=== PATIENT | male | born 1960 | race Caucasian/White ===

== ENCOUNTER → 2023-09-23 19:52 | Outpatient (REF) | payer OTHER, SELFPAY | LOC: MRI 3T 19:52 | PROVIDERS: ATTENDING PHYSICIAN Specialist | DX: R97.20 Elevated prostate specific antigen [PSA] (principal) | CPT/HCPCS: 72197; A9575 ==

== ENCOUNTER 2023-10-27 16:30 | Outpatient (RCR) | payer OTHER, SELFPAY | END 2023-10-27 23:59 | disposition home or self-care (01) | LOC: RPT 16:30 | PROVIDERS: ATTENDING PHYSICIAN Specialist; FAMILY PHYSICIAN Internal Medicine | DX: C61 Malignant neoplasm of prostate (principal); M62.89 Other specified disorders of muscle; R10.2 Pelvic and perineal pain; Z73.6 Limitation of activities due to disability | CPT/HCPCS: 97162; 97530 ==

== ENCOUNTER 2023-11-03 06:10 | Inpatient (IN) | payer OTHER, SELFPAY ==
[2023-10-28 08:12] VITALS: BMI 26.3
[2023-10-28 09:00] LABS: Hematocrit 38.7 % (39.0-52.0); Hemoglobin 13.9 g/dL (13.0-18.0); Mean Corp Hgb Conc. 35.9 g/dL (33.0-37.0); Mean Corpuscular Volume 80.6 fL (80.0-94.0); Mean Platelet Volume 8.6 fL (7.4-10.4); Platelet Count 178 10^3/uL (130-400); Red Cell Dist. Width 12.5 % (11.5-14.5); White Blood Cell Count 6.3 10^3/uL (4.8-10.8)
[2023-10-28 09:12] LABS: INR 1.02; PT 13.2 Sec (11.4-14.6)
[2023-10-28 09:13] LABS: APTT 29.9 Sec (23.4-35.0)
[2023-10-28 09:29] LABS: Urine Albumin Negative (Neg - Trace); Urine Bilirubin Negative (Negative); Urine Character Clear (Clear); Urine Glucose Negative (Negative); Urine Ketone Negative (Negative); Urine Leukocyte Negative (Negative); Urine Nitrite Negative (Negative); Urine Occult Blood Negative (Negative); Urine Specific Gravity 1.015 (<1.030); Urine Urobilinogen Negative (Neg - 1+)
[2023-10-28 09:31] LABS: Urine Color Yellow
[2023-10-28 10:31] LABS: Blood Urea Nitrogen 13 mg/dl (9-20); Calcium 9.5 mg/dl (8.4-10.2); Carbon Dioxide 29 mmol/L (22-30); Chloride 106 mmol/L (98-107); Estimated Creatinine Clearance 70 ml/min; Glucose 100 mg/dl (70-99); Potassium 4.6 mmol/L (3.5-5.1); Sodium 139 mmol/L (135-145); eGFR > 60.00
[2023-11-03] VITALS (20 sets, daily range): BP systolic 106–166; BP diastolic 61–95; BMI 26.3; BMI 26.2
[2023-11-03] MEDS: NORMOSOL-R 1000 IV ×3 (07:59→23:54)
[2023-11-03] MEDS: NEBCIN 480 MG/100 ML ENEMA 1 BOTTLE RECTAL (08:00)
--- NOTE | 2023-11-03 11:08 | W.IMMPOSTOP ---
Surgical Immed Post Op Note
-
Primary Surgeon: Alejandro
Assisting Surgeon: Pipo
Pre-op Diagnosis: Prostate cancer
Post-op Diagnosis: Same
Procedure Performed: Radical perineal prostatectomy
Anesthesia Type: GET
Specimen / Cultures: Prostate w/ seminal vesicles, bladder neck and urethral margins
Estimated Blood Loss: 100 ml
Complications: None
[2023-11-03] MEDS: DILAUDID 0.5 MG IV ×3 (11:33→13:25)
[2023-11-03 11:54] LABS: Hematocrit 36.9 % (39.0-52.0); Hemoglobin 12.9 g/dL (13.0-18.0)
[2023-11-03 12:04] LABS: Blood Urea Nitrogen 14 mg/dl (9-20); Calcium 8.3 mg/dl (8.4-10.2); Carbon Dioxide 25 mmol/L (22-30); Chloride 107 mmol/L (98-107); Estimated Creatinine Clearance 77 ml/min; Glucose 109 mg/dl (70-99); Potassium 4.3 mmol/L (3.5-5.1); Sodium 135 mmol/L (135-145); eGFR > 60.00
[2023-11-03] MEDS: TORADOL 15 MG IV ×3 (12:08→23:53)
[2023-11-03] MEDS: COLACE PO (16:04)
[2023-11-03] MEDS: PERCOCET 5/325 1 TABLET PO ×2 (16:29→21:10)
[2023-11-03] MEDS: COLACE 100 MG PO (16:29)
--- NOTE | 2023-11-03 16:42 | PTCARENOTE ---
Patient received from PACU in bed; IVF infusing; Surgical site assessed with WEB WORKER, grante with ABD and joni drain present; Escudero catheter in place; Patient oriented to room and unit; Spouse at bedside; Bed in lowest position, wheels locked;
Call king within reach
[2023-11-03] MEDS: POLYSPORIN OINTMENT 1 APPLIC TOPICAL (20:56)
[2023-11-04 04:45] VITALS: BP 132/76
[2023-11-04] MEDS: TORADOL 15 MG IV ×2 (06:18→18:04)
[2023-11-04] MEDS: SYNTHROID 125 MCG PO (06:19)
[2023-11-04 06:30] LABS: Hematocrit 31.9 % (39.0-52.0); Hemoglobin 11.4 g/dL (13.0-18.0); Mean Corp Hgb Conc. 35.7 g/dL (33.0-37.0); Mean Corpuscular Hgb 29.2 pg (27.0-31.0); Mean Corpuscular Volume 81.6 fL (80.0-94.0); Mean Platelet Volume 8.9 fL (7.4-10.4); Platelet Count 160 10^3/uL (130-400); Red Blood Cell Count 3.91 10^6/uL (4.70-6.10); Red Cell Dist. Width 12.5 % (11.5-14.5); White Blood Cell Count 12.7 10^3/uL (4.8-10.8)
[2023-11-04 07:06] LABS: Blood Urea Nitrogen 15 mg/dl (9-20); Calcium 8.5 mg/dl (8.4-10.2); Carbon Dioxide 25 mmol/L (22-30); Chloride 105 mmol/L (98-107); Estimated Creatinine Clearance 79 ml/min; Glucose 96 mg/dl (70-99); Sodium 133 mmol/L (135-145); eGFR > 60.00
[2023-11-04 07:12] LABS: Potassium 4.3 mmol/L (3.5-5.1)
[2023-11-04 07:35] VITALS: BP 128/78
[2023-11-04] MEDS: NORMOSOL-R 1000 IV (08:51)
[2023-11-04] MEDS: POLYSPORIN OINTMENT 1 APPLIC TOPICAL ×2 (08:51→20:38)
--- NOTE | 2023-11-04 09:02 | W.PN.UPDATE ---
Update Note
Progress Note Update
Stable 1 day s/p radical perineal prostatectomy
Escudero draining clear urine
Labs OK
Tole diet
Flatus and BM
Incision clean
---
Anticipate discharge home tomorrow
[2023-11-04] MEDS: COLACE 100 MG PO ×2 (09:03→18:05)
[2023-11-04] MEDS: CLARITIN 10 MG PO (09:03)
[2023-11-04] MEDS: ZESTRIL 20 MG PO (09:03)
[2023-11-04] MEDS: CRESTOR 10 MG PO (09:04)
[2023-11-04] MEDS: TYLENOL 650 MG PO ×2 (09:08→14:42)
[2023-11-04 11:09] VITALS: BP 145/68
--- NOTE | 2023-11-04 12:12 | CM ---
Reviewed the chart notes and spoke with the patient at the bedside. The patient resides with his spouse in a two story home with two steps to enter. The patient reports no DME/VN/SNF. The patient confirmed his pharmacy of choice is the [facility]
[address] [place]. The patient has been ordered VN. Discussed area VN agencies. Patient selected VN. Referral sent in [facility]. continues to be available to patient/family and is monitoring medical plan for needs at discharge.
Plan: Discharge to home with VN services.
[2023-11-04] MEDS: COLACE PO (12:40)
[2023-11-04] MEDS: TORADOL IV (12:40)
[2023-11-04 15:46] VITALS: BP 156/89
[2023-11-04 23:37] VITALS: BP 129/76
[2023-11-05] MEDS: SYNTHROID 125 MCG PO (06:02)
[2023-11-05] MEDS: TYLENOL 650 MG PO ×2 (06:05→13:10)
[2023-11-05 07:48] VITALS: BP 129/74
[2023-11-05] MEDS: POLYSPORIN OINTMENT 1 APPLIC TOPICAL (07:53)
[2023-11-05] MEDS: CRESTOR 10 MG PO (07:53)
[2023-11-05] MEDS: COLACE 100 MG PO (07:54)
[2023-11-05] MEDS: CLARITIN 10 MG PO (07:54)
[2023-11-05] MEDS: ZESTRIL 20 MG PO (07:54)
--- NOTE | 2023-11-05 11:08 | W.DCSUMMARY ---
Discharge Summary
Discharge Data
Date of Admission: 11/03/23
Date of Discharge: 11/05/23
-
Pending Results: Yes (pathologyu report)
Discharge Plan
-
Patient Disposition: Home with Home Care
Discharge Diagnosis/Procedures: prostate cancer
Condition: Good
Diet: No restrictions
Activity: No strenuous activity
Additional Activity: for 1 week
Driving Restrictions: No driving for 1 week
Bathing Restrictions: Shower off after each BM for the next 5 days
Other Services: VN
Wound Care: VN to remove Escudero around 10 AM Tuesday11/14/23
Referrals:
Ignacio Masterson MD [Family Provider] -
Tre Allen MD [Active] - (Call now to schedule visit to see Dr. Allen' nurse 11/14/23 around 3pm to check voiding)
Prescriptions:
New
doxycycline hyclate 100 mg capsule
100 mg PO BID 7 Days Qty: 14 0RF
Continued
multivitamin Tablet
1 tab PO DAILY
celecoxib [Celebrex] 200 mg Capsule
200 mg PO DAILY
omega-3 fatty acids 1,000 mg Capsule
4,000 mg PO DAILY
lisinopril 20 mg Tablet
20 mg PO DAILY
levothyroxine [Synthroid] 125 mcg Tablet
125 mcg PO DAILY
loratadine [Claritin] 10 mg Tablet
10 mg PO DAILY
rosuvastatin 20 mg Tablet
20 mg PO DAILY
Discharge Orders:
Discharge Patient (As Directed); Ordered 11/05/23
Ordered By: Surya Steen
Discharge Date and Time
Print Language: YORUBA
--- NOTE | 2023-11-05 12:08 | CM ---
CM following re: discharge planning.
Reviewed pt's chart, met with pt.
Discharge order noted. Pt is aware and he stated his spouse is coming to transport home. Pt is aware he will have [facility].
Please fax discharge instructions to [facility] at [phone]
D/C plan: home with [facility] and family support. Spouse to transport.
No other discharge needs identified.
[2023-11-05] MEDS: COLACE PO (13:10)
[2023-11-05 13:26] VITALS: BP 162/95
--- NOTE | 2023-11-08 11:13 | W.DS.TRANS ---
DC Summary - [employer]
-
Discharge Instructions:
Sleep Apnea Risk Intermediate
Discharge Diagnosis/Procedures prostate cancer
Diet No restrictions
Activity No strenuous activity
Additional Activity for 1 week
Driving Restrictions No driving for 1 week
Bathing Restrictions Shower off after each BM for the next 5 days
Other Services VN
Wound Care VN to remove Escudero around 10 AM Tuesday11/14/23
Instructions:
Stand-Alone Forms:
Changes to Home Medications: No
Discharge Medications:
DC Medications w/original date entered in [employer]
celecoxib 200 mg capsule (Celebrex) 200 mg PO DAILY Pain 10/28/23
levothyroxine 125 mcg tablet (Synthroid) 125 mcg PO DAILY Thyroid 10/28/23
lisinopril 20 mg tablet 20 mg PO DAILY Blood Pressure 10/28/23
loratadine 10 mg tablet (Claritin) 10 mg PO DAILY Allergies 10/28/23
multivitamin 1 tab PO DAILY Supplement 10/28/23
omega-3 fatty acids 1,000 mg capsule 4,000 mg PO DAILY High Cholesterol 10/28/23
rosuvastatin 20 mg tablet 20 mg PO DAILY High Cholesterol 10/28/23
doxycycline hyclate 100 mg capsule 100 mg PO BID 7 days #14 caps 11/04/23
Home Medication Changes
Pending Results: No
== END 2023-11-05 13:00 | disposition home health service (06) | DRG 708 ==
LOC: 2 SOUTH 06:10
PROVIDERS: ADMITTING PHYSICIAN Specialist; FAMILY PHYSICIAN Internal Medicine
PROC: 0TQC0ZZ Repair Bladder Neck, Open Approach (ICD-10-PCS; 2023-11-03)
PROC: 0VTQ0ZZ Resection of Bilateral Vas Deferens, Open Approach (ICD-10-PCS; 2023-11-03)
PROC: 0VT30ZZ Resection of Bilateral Seminal Vesicles, Open Approach (ICD-10-PCS; 2023-11-03)
PROC: 0VT00ZZ Resection of Prostate, Open Approach (ICD-10-PCS; 2023-11-03)
DX: C61 Malignant neoplasm of prostate (principal); E06.3 Autoimmune thyroiditis; I10 Essential (primary) hypertension; K21.9 Gastro-esophageal reflux disease without esophagitis; N52.01 Erectile dysfunction due to arterial insufficiency; R97.20 Elevated prostate specific antigen [PSA]; Z79.890 Hormone replacement therapy; Z79.1 Long term (current) use of non-steroidal anti-inflammatories (NSAID)
CPT/HCPCS: 88305; 88309; 36415; 80048; 81003; 85014; 85018; 85027; 85610; 85730; 86850; 86900; 86901; 88341; 88342; 88344; 93005; A4648

== ENCOUNTER 2023-12-30 08:54 | Outpatient (RCR) | payer OTHER, SELFPAY | END 2023-12-30 23:59 | disposition home or self-care (01) | LOC: RPT 08:54 | PROVIDERS: ATTENDING PHYSICIAN Specialist; FAMILY PHYSICIAN Internal Medicine | DX: M62.89 Other specified disorders of muscle (principal); R10.2 Pelvic and perineal pain; N39.3 Stress incontinence (female) (male); Z73.6 Limitation of activities due to disability | CPT/HCPCS: 97140; 97164; 97530 ==

== ENCOUNTER 2024-01-30 09:16 | Outpatient (RCR) | payer OTHER, SELFPAY | END 2024-01-30 23:59 | disposition home or self-care (01) | LOC: RPT 09:16 | PROVIDERS: ATTENDING PHYSICIAN Specialist; FAMILY PHYSICIAN Internal Medicine | DX: M62.89 Other specified disorders of muscle (principal); R10.2 Pelvic and perineal pain; N39.3 Stress incontinence (female) (male); Z73.6 Limitation of activities due to disability; C61 Malignant neoplasm of prostate | CPT/HCPCS: 97112; 97140; 97530 ==

== ENCOUNTER 2024-02-20 06:38 | Outpatient (RCR) | payer OTHER, SELFPAY | END 2024-02-20 23:59 | disposition home or self-care (01) | LOC: RPT 06:38 | PROVIDERS: ATTENDING PHYSICIAN Specialist; FAMILY PHYSICIAN Internal Medicine | DX: M62.89 Other specified disorders of muscle (principal); R10.2 Pelvic and perineal pain; N39.3 Stress incontinence (female) (male); C61 Malignant neoplasm of prostate; Z73.6 Limitation of activities due to disability | CPT/HCPCS: 97140; 97530 ==

== ENCOUNTER 2025-05-06 06:35 | Day surgery (SDC) | payer OTHER, SELFPAY ==
[2025-04-29 08:55] LABS: Hematocrit 36.4 % (39.0-52.0); Hemoglobin 12.1 g/dL (13.0-18.0); Mean Corp Hgb Conc. 33.2 g/dL (33.0-37.0); Mean Corpuscular Volume 86.3 fL (80.0-94.0); Platelet Count 147 10^3/uL (130-400); Red Cell Dist. Width 12.2 % (11.5-14.5)
[2025-04-29 09:25] LABS: Blood Urea Nitrogen 17 mg/dl (9-20); Calcium 9.2 mg/dl (8.4-10.2); Carbon Dioxide 28 mmol/L (22-30); Chloride 108 mmol/L (98-107); Glucose 105 mg/dl (70-99); Potassium 4.4 mmol/L (3.5-5.1); Sodium 140 mmol/L (135-145); eGFR > 60.00
[2025-04-29 14:05] VITALS: BMI 25.3
[2025-05-06] VITALS (10 sets, daily range): BP systolic 141–177; BP diastolic 82–101; BMI 25.3
[2025-05-06] MEDS: TYLENOL 1000 MG PO (07:06)
--- NOTE | 2025-05-06 07:06 | HP.FOC2 ---
Focused History & Physical
Chief Complaint
HPI:
Chief Complaint: Right inguinal hernia
HPI / Indication for Planned Procedure: 64-year-old male with a known history of a right inguinal hernia that he has been followed expectantly. It is now a bit larger in size and symptomatic. Outpatient evaluation confirmed the presence of a
reducible right inguinal hernia also seen on previous MRI imaging of the pelvis from 2023. He presents today for scheduled operative correction.
Relevant Past Medical History: Other (Hypertension, Nikhil's thyroiditis, GERD, psoriasis, arthritis and history of prostate cancer)
Relevant Social History: Negative
Relevant Family History: Negative
Relevant Past Surgical History: Positive for (Perineal prostatectomy)
Review of Systems
Review of Pertinent Systems: All Systems Negative
Medication
See Medication form for detailed medications: Yes
Medication List (including Herbals & OTC):
levothyroxine 125 mcg tablet (Synthroid) 125 mcg PO DAILY Thyroid 10/28/23
lisinopril 20 mg tablet 20 mg PO DAILY Blood Pressure 10/28/23
loratadine 10 mg tablet (Claritin) 10 mg PO PRN PRN seasonal allergy 10/28/23
multivitamin 1 tab PO DAILY Supplement 10/28/23
omega-3 fatty acids 1,000 mg capsule 4,000 mg PO DAILY High Cholesterol 10/28/23
rosuvastatin 20 mg tablet 20 mg PO DAILY High Cholesterol 10/28/23
naproxen sodium 220 mg tablet (Aleve) 220 mg PO Q8H PRN PAIN 04/29/25
Medications Reviewed: Yes
Allergies and Reactions
Patient has Allergies: Yes
Noted Allergies and Reactions:
Allergy/AdvReac Type Severity Reaction Status Date / Time
pollen extracts Allergy SEASONAL/ENVIRONMENTAL Verified 05/06/25 07:01
ALLERGY
tree and shrub pollen Allergy NASAL Verified 05/06/25 07:01
CONGESTION/ITCHY
EYES
Pertinent Physical Exam
All Other Systems: Negative
Head/Neck: Normal
Lungs: Normal
Heart: Normal
Abdomen: Other (Reducible right inguinal hernia)
Extremities: Normal
Neurological: Normal
Diagnosis / Assessment
64-year-old male presenting for scheduled operative correction symptomatic right inguinal hernia
Plan / Procedure
Robotic assisted laparoscopic repair of right inguinal hernia with mesh
Anesthesia/Sedation to be done by Anesthesia Provider: Yes
--- NOTE | 2025-05-06 07:08 | W.SUR.PREOP ---
Pre-Operative Surgical Note
-
I have examined this patient prior to the performance of the scheduled procedure.
The patient's condition is unchanged from the time of the current History and
Physical and the patient is able to undergo the scheduled procedure.
[2025-05-06] MEDS: NORMOSOL-R/PLASMALYTE-A 1000 IV (07:24)
--- NOTE | 2025-05-06 08:32 | W.IMMPOSTOP ---
Addendum entered and electronically signed by Jason Hanna MD 05/06/25 08:42:
#[id number]
Original Note:
Surgical Immed Post Op Note
-
Primary Surgeon: Jason Hanna MD
Assisting Surgeon: Nicki Nielsen NP
Pre-op Diagnosis: Right inguinal hernia
Post-op Diagnosis: Right inguinal hernia; direct
Procedure Performed: Robotic assisted laparoscopic ALLEN repair right inguinal hernia with mesh; 3D max large mid weight
Anesthesia Type: GETA +0.25% Marcaine
Specimen / Cultures: None
Estimated Blood Loss: 4 mL
Complications: None immediate
Operative Findings: Right direct inguinal hernia. Femoral and indirect space normal. No visualized lipoma of spermatic cord. Pseudosac plicated to Ye's with 2-0 Vicryl stitch. 3D max large mid weight mesh repair secured to Ye's with 2-0
Vicryl stitch x 2. Peritoneal flap closed with 2-0 Monocryl STRATAFIX spiral. No additional incidental findings.
The assistance of Nicki Nielsen NP was required due to the complexity of the procedure. During the procedure Nicki Nielsen NP assisted with port placement, robotic instrumentation and suture material exchanges, and closure of the surgical
incision sites. I was present for the entirety of the operative procedure.
== END 2025-05-06 10:30 | disposition home or self-care (01) ==
LOC: SDS 06:35
PROVIDERS: ATTENDING PHYSICIAN Surgery; FAMILY PHYSICIAN Internal Medicine
DX: K40.90 Unilateral inguinal hernia, without obstruction or gangrene, not specified as recurrent (principal)
CPT/HCPCS: 49650; 80048; 85027; 93005; C1781